=== PATIENT | female | born 1945 | race Caucasian/White ===

== ENCOUNTER → 2017-07-03 | Outpatient (CLI) | payer MEDICARE, OTHER ==
[~2017-07-03] MED LIST: ALBU8.5H8 INH; ASPI-696 PO; CEFT1VIA IVPB; CIPR200P4 IVPB; CIPR500T87 PO; DIAZ10TA PO; DOCU-131 PO; ELAVIL; FEXO1TAB29 PO; FLUT50DI INH; FOLI-17 PO; GABA-826 PO; HYDR-3240 PO; HYDR-757 PO; INFL100V IV; LEFL10TA14 PO; LEVO1CAP3 PO; LEVO750T26 PO; OMEP-110 PO; ONDA4SOL2 IVPush; OXYB10TA PO; OXYC-302 PO; OXYC-307 PO; PIRO20CA2 PO; POLY17PO5 PO; POLY454P4 PO; PRED1TAB PO; TIOT18CA INH; TIZA4CAP PO; TRAV5DRO EACHEYE; TRAV5DRO OP; ZOLP10TA5 PO; [UNRECOGNIZED DRUG - OTHER] INH
== END | disposition home or self-care (01) ==
LOC: CFH 08:48
PROVIDERS: ATTEND Specialist
DX: Z13.820 Encounter for screening for osteoporosis (principal); M81.0 Age-related osteoporosis without current pathological fracture
CPT/HCPCS: 77080

== ENCOUNTER → 2018-12-10 | Outpatient (CLI) | payer MEDICARE, OTHER | END | disposition home or self-care (01) | LOC: CFH 08:25 | PROVIDERS: ATTEND Registered Nurse | DX: J44.9 Chronic obstructive pulmonary disease, unspecified (principal); J84.10 Pulmonary fibrosis, unspecified; J96.11 Chronic respiratory failure with hypoxia; R91.8 Other nonspecific abnormal finding of lung field; I25.10 Atherosclerotic heart disease of native coronary artery without angina pectoris; M43.8X6 Other specified deforming dorsopathies, lumbar region; Z90.49 Acquired absence of other specified parts of digestive tract; Z72.0 Tobacco use | CPT/HCPCS: 71250 ==

== ENCOUNTER 2018-12-18 06:27 | Day surgery (SDC) | payer MEDICARE, OTHER ==
[~2018-12-18] VITALS: Ht 165.1 cm; Wt 50.2 kg
[2018-12-18 07:25] VITALS: BP 87/58
[2018-12-18] MEDS ORDERED: SINGULAIR PO (07:37)
[2018-12-18] MEDS ORDERED: TRAZ50TA66 PO (07:37)
[2018-12-18] MEDS ORDERED: FLUMAZENIL 0.1 MG/1 ML, 5ML ONE (08:12)
[2018-12-18] MEDS ORDERED: FENTANYL PF 100 MCG/2ML ONE (08:12)
[2018-12-18] MEDS ORDERED: MIDAZOLAM 1 MG/ML, 5ML ONE (08:12)
[2018-12-18] MEDS ORDERED: LIDOCAINE-MPF 1%, 5ML ONE (08:13)
[2018-12-18] MEDS ORDERED: NALOXONE 1 MG/ML, 2ML ONE (08:13)
== END 2018-12-18 12:20 | disposition home or self-care (01) ==
LOC: OUT 06:27
PROVIDERS: ATTEND Registered Nurse
DX: C34.91 Malignant neoplasm of unspecified part of right bronchus or lung (principal); J43.2 Centrilobular emphysema; F17.200 Nicotine dependence, unspecified, uncomplicated; F41.9 Anxiety disorder, unspecified; D64.9 Anemia, unspecified; Z79.01 Long term (current) use of anticoagulants; Z85.828 Personal history of other malignant neoplasm of skin; Z90.49 Acquired absence of other specified parts of digestive tract; Z98.890 Other specified postprocedural states; Z79.82 Long term (current) use of aspirin; Z88.5 Allergy status to narcotic agent; Z88.8 Allergy status to other drugs, medicaments and biological substances
CPT/HCPCS: 32405; 71045; 77012; 88305; 99156; J2250; J3010; 99157; J2310

== ENCOUNTER → 2019-01-03 | Outpatient (CLI) | payer MEDICARE, OTHER ==
[~2019-01-03] MED LIST changes: +SINGULAIR PO; +TRAZ50TA66 PO
== END | disposition home or self-care (01) ==
LOC: PETCFH 09:00
PROVIDERS: ATTEND Internal Medicine Critical Care Medicine
DX: C34.31 Malignant neoplasm of lower lobe, right bronchus or lung (principal); R91.8 Other nonspecific abnormal finding of lung field
CPT/HCPCS: 78815; A9552

== ENCOUNTER → 2019-01-06 | Outpatient (CLI) | payer MEDICARE, OTHER ==
[~2019-01-06] MED LIST changes: +GADOBUTROL 7.5 MMOL/7.5 ML PFS ONE
== END | disposition home or self-care (01) ==
LOC: CFH 07:38
PROVIDERS: ATTEND Internal Medicine Critical Care Medicine
DX: G31.9 Degenerative disease of nervous system, unspecified (principal); C34.91 Malignant neoplasm of unspecified part of right bronchus or lung
CPT/HCPCS: 70553; A9585

== ENCOUNTER → 2019-01-10 | Outpatient (CLI) | payer MEDICARE, OTHER ==
[~2019-01-10] MED LIST changes: -GADOBUTROL 7.5 MMOL/7.5 ML PFS ONE
== END | disposition home or self-care (01) ==
LOC: ROC 08:29
PROVIDERS: ATTEND Radiology Radiation Oncology
DX: C34.91 Malignant neoplasm of unspecified part of right bronchus or lung (principal)
CPT/HCPCS: G0463

== ENCOUNTER 2019-04-07 09:24 | Outpatient (CLI) | payer MEDICARE, OTHER | END 2019-04-07 23:59 | disposition home or self-care (01) | LOC: CFH 09:24 | PROVIDERS: ATTEND Radiology Radiation Oncology | DX: C34.90 Malignant neoplasm of unspecified part of unspecified bronchus or lung (principal); J84.9 Interstitial pulmonary disease, unspecified; R91.8 Other nonspecific abnormal finding of lung field | CPT/HCPCS: 71250 ==

== ENCOUNTER 2019-04-10 07:21 | Outpatient (CLI) | payer MEDICARE, OTHER ==
[~2019-04-10 07:21] MED LIST changes: -OXYB10TA PO; +OXYB10TA2 PO; -PRED1TAB PO; +PRED1TAB19 PO
[2019-05-20] MEDS ORDERED: [UNRECOGNIZED DRUG - OTHER] (15:14)
[2019-05-20] MEDS ORDERED: AZEL23SP NAS (15:14)
[2019-05-20] MEDS ORDERED: HYDR-36 PO (15:14)
[2019-05-20] MEDS ORDERED: PROLIA (15:14)
[2019-05-20] MEDS ORDERED: METH500T7 PO (15:14)
[2019-05-20] MEDS ORDERED: [UNRECOGNIZED DRUG - OTHER] (15:14)
[2019-05-22] MEDS ORDERED: CEFD300C37 PO (15:15)
== END 2019-04-10 23:59 | disposition home or self-care (01) ==
LOC: ROC 07:21
PROVIDERS: ATTEND Radiology Radiation Oncology
DX: C34.31 Malignant neoplasm of lower lobe, right bronchus or lung (principal)
CPT/HCPCS: G0463

== ENCOUNTER 2019-07-03 06:07 | Day surgery (SDC) | payer MEDICARE, OTHER ==
[~2019-07-03] VITALS: Ht 166.4 cm; Wt 46.4 kg
[~2019-07-03 06:07] MED LIST changes: +AZEL23SP NAS; +CEFD300C37 PO; +HYDR-36 PO; +METH500T7 PO; +PROLIA; +[UNRECOGNIZED DRUG - OTHER]; +[UNRECOGNIZED DRUG - OTHER]
[2019-07-03 06:56] VITALS: BP_SYST 81; BP_SYST 91; BP_DIAS 44; BP_DIAS 56
[2019-07-03] MEDS ORDERED: SODIUM CHLORIDE 0.9% 1,000 ML IV SCH (07:01)
[2019-07-03] MEDS ORDERED: FENTANYL PF 100 MCG/2ML ONE (07:59)
[2019-07-03] MEDS ORDERED: FLUMAZENIL 0.1 MG/1 ML, 5ML ONE (07:59)
[2019-07-03] MEDS ORDERED: MIDAZOLAM 1 MG/ML, 5ML ONE (07:59)
[2019-07-03] MEDS ORDERED: NALOXONE 1 MG/ML, 2ML ONE (07:59)
== END 2019-07-03 09:10 | disposition home or self-care (01) ==
LOC: OUT 06:07
PROVIDERS: ATTEND Specialist
DX: C34.31 Malignant neoplasm of lower lobe, right bronchus or lung (principal); I10 Essential (primary) hypertension; F17.218 Nicotine dependence, cigarettes, with other nicotine-induced disorders; D64.9 Anemia, unspecified; J44.9 Chronic obstructive pulmonary disease, unspecified; H40.9 Unspecified glaucoma; K50.90 Crohn's disease, unspecified, without complications; Z90.49 Acquired absence of other specified parts of digestive tract; Z98.890 Other specified postprocedural states; Z79.82 Long term (current) use of aspirin; Z88.5 Allergy status to narcotic agent; Z88.8 Allergy status to other drugs, medicaments and biological substances
CPT/HCPCS: 32405; 77012; J2250; J3010; J7030; J2310